=== PATIENT | male | born 1985 | race Caucasian/White ===

== ENCOUNTER 2020-12-27 10:23 | Emergency (ER) | payer OTHER ==
[~2020-12-27] VITALS: Ht 167.7 cm; Wt 88.6 kg
[2020-12-27] MEDS ORDERED: PROMETHAZINE INJ 25 MG/ML (PHENERGAN) AMP IVP ONE (11:00)
[2020-12-27] MEDS ORDERED: LACTATED RINGERS 1,000 ML IV ONE (11:00)
[2020-12-27 11:08] LABS: BASOPHILS # (AUTO) 0.1 10^3/uL (0.0-0.1); BASOPHILS % (AUTO) 1 % (0-10); EOSINOPHILS # (AUTO) 0.3 10^3/uL (0.0-0.3); EOSINOPHILS % (AUTO) 3 % (0-10); HEMATOCRIT 48 % (40-54); LYMPHOCYTES # (AUTO) 2.5 10^3/uL (1.0-4.0); LYMPHOCYTES % (AUTO) 30 % (12-44); MEAN CORPUSCULAR HEMOGLOBIN 31 pg (25-34); MEAN CORPUSCULAR HGB CONC 34 g/dL (32-36); MEAN CORPUSCULAR VOLUME 92 fL (80-99); MEAN PLATELET VOLUME 10.4 fL (9.0-12.2); MONOCYTES # (AUTO) 0.8 10^3/uL (0.0-1.0); MONOCYTES % (AUTO) 10 % (0-12); NEUTROPHILS # (AUTO) 4.6 10^3/uL (1.8-7.8); NEUTROPHILS % (AUTO) 56 % (42-75); PLATELET COUNT 242 10^3/uL (130-400); WHITE BLOOD COUNT 8.3 10^3/uL (4.3-11.0)
[2020-12-27 11:19] LABS: ALBUMIN 4.4 GM/DL (3.2-4.5); CHLORIDE 104 MMOL/L (98-107); POTASSIUM 4.1 MMOL/L (3.6-5.0); SODIUM 140 MMOL/L (135-145)
[2020-12-27 11:21] LABS: CALCIUM 9.3 MG/DL (8.5-10.1)
[2020-12-27 11:22] LABS: GLUCOSE 100 MG/DL (70-105); TOTAL PROTEIN 7.2 GM/DL (6.4-8.2)
[2020-12-27 11:23] LABS: CARBON DIOXIDE 23 MMOL/L (21-32)
[2020-12-27 11:24] LABS: BILIRUBIN,TOTAL 1.2 MG/DL (0.1-1.0)
[2020-12-27 11:25] LABS: ALKALINE PHOSPHATASE 62 U/L (40-136)
[2020-12-27 11:26] LABS: CREATININE SERUM 0.94 MG/DL (0.60-1.30); GFR ESTIMATED > 60
[2020-12-27 11:27] LABS: BUN/CREATININE RATIO 12
[2020-12-27 11:28] LABS: ALANINE AMINOTRANSFERASE 40 U/L (0-55); MAGNESIUM 2.3 MG/DL (1.6-2.4)
[2020-12-27] MEDS ORDERED: diphenhydrAMINE 50 MG/ML INJ (BENADRYL) IVP ONE (11:45)
[2020-12-27] MEDS ORDERED: ONDA4TAB11 SL (13:33)
[2020-12-27] MEDS ORDERED: MECL-149 PO (13:33)
--- NOTE | 2020-12-27 13:36 | ED Neurological Problem ---
General Chief Complaint: Dizziness/Syncope Stated Complaint: DIZZINESS/SHAKY/NAUSEA Nursing Triage Note: TO ROOM PER W/C WITH C/O OF BEING DIZZY WHILE STANDING OUTSIDE. HAS JUST RECENT STARTED ON B/P MEDS X 1 MONTH AGO. 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 His dizziness is described as a vertiginous spinning sensation with a tendency to lean to the right. He vomited 6 times in association with this dizziness and still feels nauseous now. He denies that he neurologic deficits. He is still ambulatory. He denies any recent illness, drug or alcohol use, or other acute problems. Patient states he remotely had an episode of symptoms like this and was ultimately diagnosed with meningitis. Allergies and Home Medications Allergies Coded Allergies: promethazine (Verified Adverse Reaction, Intermediate, Agitation, 12/27/20) IV Phenergan caused agitation and jitteriness. Home Medications Meclizine HCl 25 Mg Tablet, 25 MG PO Q6H PRN for DIZZINESS Prescribed by: ANDREA JIN on 12/27/20 1333 Ondansetron 4 Mg Tab.rapdis, 4 MG SL Q4H PRN for NAUSEA/VOMITING Prescribed by: ANDREA JIN on 12/27/20 1333 Patient Home Medication List Home Medication List Reviewed: Yes Review of Systems Review of Systems Constitutional: no symptoms reported Eyes: No Symptoms Reported Ears, Nose, Mouth, Throat: see HPI Respiratory: no symptoms reported Cardiovascular: see HPI Gastrointestinal: see HPI Genitourinary: no symptoms reported Musculoskeletal: no symptoms reported Skin: no symptoms reported Psychiatric/Neurological: See HPI Endocrine: No Symptoms Reported Hematologic/Lymphatic: No Symptoms Reported Past Hqzhahf-Ccqgnp-Rfxqyt Hx Past Med/Social Hx: Reviewed Nursing Past Med/Soc Hx Patient Social History Alcohol Use: Occasionally Uses Smoking Status: Never a Smoker Recent Infectious Disease Expo: No Past Medical History Surgeries: No Respiratory: No Cardiac: Yes Hypertension Neurological: No Gastrointestinal: No Musculoskeletal: No Endocrine: No HEENT: No Cancer: No Psychosocial: No Integumentary: No Physical Exam Vital Signs Vital Signs - First Documented 12/27/20 12/27/20 10:27 13:45 Temp 35.1 Pulse 67 Resp 18 B/P (MAP) 132/100 (111) Pulse Ox 98 O2 Delivery Room Air Capillary Refill : Less Than 3 Seconds Height, Weight, BMI Height: '" Weight: lbs. oz. 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, no motor/sensory deficits, alert, normal mood/affect, oriented x 3, other (Normal [id number]-[id number] and [id number]) Crainal Nerves: normal hearing, normal speech Coordination/Gait: normal finger to nose, normal gait Motor/Sensory: no motor deficit, no sensory deficit Skin: normal color, warm/dry Progress/Results/Core Measures Results/Orders Lab Results Laboratory Tests Test 12/27/20 11:01 Range/Units White Blood Count 8.3 4.3-11.0 10^3/uL Red Blood Count 5.21 4.30-5.52 10^6/uL Hemoglobin 16.0 13.3-17.7 g/dL Hematocrit 48 40-54 % Mean Corpuscular Volume 92 80-99 fL Mean Corpuscular Hemoglobin 31 25-34 pg Mean Corpuscular Hemoglobin Concent 34 32-36 g/dL Red Cell Distribution Width 13.2 10.0-14.5 % Platelet Count 242 130-400 10^3/uL Mean Platelet Volume 10.4 9.0-12.2 fL Immature Granulocyte % (Auto) 1 % Neutrophils (%) (Auto) 56 42-75 % Lymphocytes (%) (Auto) 30 12-44 % Monocytes (%) (Auto) 10 0-12 % Eosinophils (%) (Auto) 3 0-10 % Basophils (%) (Auto) 1 0-10 % Neutrophils # (Auto) 4.6 1.8-7.8 10^3/uL Lymphocytes # (Auto) 2.5 1.0-4.0 10^3/uL Monocytes # (Auto) 0.8 0.0-1.0 10^3/uL Eosinophils # (Auto) 0.3 0.0-0.3 10^3/uL Basophils # (Auto) 0.1 0.0-0.1 10^3/uL Immature Granulocyte # (Auto) 0.1 0.0-0.1 10^3/uL Sodium Level 140 135-145 MMOL/L Potassium Level 4.1 3.6-5.0 MMOL/L Chloride Level 104 98-107 MMOL/L Carbon Dioxide Level 23 21-32 MMOL/L Anion Gap 13 5-14 MMOL/L Blood Urea Nitrogen 11 7-18 MG/DL Creatinine 0.94 0.60-1.30 MG/DL Estimat Glomerular Filtration Rate > 60 BUN/Creatinine Ratio 12 Glucose Level 100 70-105 MG/DL Calcium Level 9.3 8.5-10.1 MG/DL Corrected Calcium 9.0 8.5-10.1 MG/DL Magnesium Level 2.3 1.6-2.4 MG/DL Total Bilirubin 1.2 H 0.1-1.0 MG/DL Aspartate Amino Transf (AST/SGOT) 28 5-34 U/L Alanine Aminotransferase (ALT/SGPT) 40 0-55 U/L Alkaline Phosphatase 62 40-136 U/L Total Protein 7.2 6.4-8.2 GM/DL Albumin 4.4 3.2-4.5 GM/DL My Orders Orders - ANDREA SAHNI MD Promethazine Injection (Phenergan Injec (12/27/20 11:00) Ed Iv/Invasive Line Start (12/27/20 10:56) Lactated Ringers (Lr 1000 Ml Iv Solution (12/27/20 11:00) Cbc With Automated Diff (12/27/20 10:56) Comprehensive Metabolic Panel (12/27/20 10:56) Magnesium (12/27/20 10:56) Diphenhydramine Injection (Benadryl Inje (12/27/20 11:45) Medications Given in ED Current Medications Medications Dose Ordered Sig/Shanita Route Start Time Stop Time Status Last Admin Dose Admin Diphenhydramine HCl 25 mg ONCE ONCE IVP 12/27/20 11:45 12/27/20 11:46 DC 12/27/20 11:49 25 MG Lactated Ringer's 1,000 ml @ 0 mls/hr Q0M ONCE IV 12/27/20 11:00 12/27/20 11:01 DC 12/27/20 11:09 1,000 MLS/HR Promethazine HCl 25 mg ONCE ONCE IVP 12/27/20 11:00 12/27/20 11:01 DC 12/27/20 11:09 25 MG Vital Signs/I&O 12/27/20 12/27/20 10:27 13:45 Temp 35.1 Pulse 67 62 Resp 18 18 B/P (MAP) 132/100 (111) 129/85 Pulse Ox 98 O2 Delivery Room Air Room Air Blood Pressure Mean: 111 Progress Progress Note : Time: 19:21 Progress Note Patient was still rather dizzy with vertiginous spinning sensation upon arrival. He was treated with IV fluids and Phenergan. The Phenergan improved his dizziness and nausea but unfortunately caused some agitation. Benadryl was given to counter this but he still had some residual agitation. I offered further medication for this but he declined. He will just allow the Phenergan adverse effects to wear off at this point. A Lares-Hallpike was negative for nystagmus or reproduction of symptoms. Patient was ambulatory without difficulty and much improved. He was discharged with prescriptions for Zofran and meclizine as well as Suha maneuver instructions. See discharge instructions for further discussion. Departure Impression Primary Impression: Vertigo Additional Impression: Nausea and vomiting Qualified Codes: R11.2 - Nausea with vomiting, unspecified Disposition: HOME, SELF-CARE Condition: Improved Departure-Patient Inst. Decision time for Depature: 13:33 Referrals: NO,LOCAL PHYSICIAN (PCP/Family) Primary Care Physician Patient Instructions: Vertigo (a Type of Dizziness) (DC) Add. Discharge Instructions: Avoid unnecessary motion that could trigger more vertigo over the next couple of days. You may use meclizine up to 25 mg every 6 hours as needed for dizziness. Use the Zofran (ondansetron) as prescribed for nausea vomiting. If your dizziness returns, you may try the Suha maneuver per instructions provided. Call with questions or concerns. Return to care if you have worsening symptoms, especially if you develop neurologic symptoms such as weakness of a limb, facial drooping, difficulty speaking, confusion, vision changes, etc. Please list Phenergan (promethazine) as an adverse reaction anytime you are in a new healthcare encounter. Notify healthcare providers of this adverse reaction anytime you are asked about allergies. All discharge instructions reviewed with patient and/or family. Voiced understanding. Scripts Ondansetron (Ondansetron Odt) 4 Mg Tab.rapdis 4 MG SL Q4H PRN for NAUSEA/VOMITING, #10 TAB Prov: ANDREA SAHNI MD 12/27/20 Meclizine HCl (Meclizine HCl) 25 Mg Tablet 25 MG PO Q6H PRN for DIZZINESS, #20 TAB Prov: ANDREA SAHNI MD 12/27/20 ANDREA SAHNI MD Dec 27, 2020 13:36
[2020-12-27 13:45] VITALS: BP 129/85
== END 2020-12-27 13:45 | disposition home or self-care (01) ==
LOC: ER 10:25
DX: R42 Dizziness and giddiness (principal); R11.2 Nausea with vomiting, unspecified; I10 Essential (primary) hypertension; Z88.8 Allergy status to other drugs, medicaments and biological substances
CPT/HCPCS: 36415; 80053; 83735; 85025